=== PATIENT | female | born 1945 | race Caucasian/White ===

== ENCOUNTER → 2018-05-05 | Outpatient (REF) | payer MEDICARE, OTHER | LOC: M LAB REF 16:57 | DX: E11.22 Type 2 diabetes mellitus with diabetic chronic kidney disease (principal) | CPT/HCPCS: 84443 ==

== ENCOUNTER → 2019-01-26 | Outpatient (CLI) | payer MEDICARE ==
[~2019-01-26] MED LIST: /GLIP10TAB PO; ALDA25TA2 PO; AMLO25TA PO; ASPI325T PO; ATOR1TAB19 PO; BAYE325T13 PO; BENA10TA2 PO; CALC1CAP31 PO; CARV6.25 PO; CEPALOZ2 MT; COUM2.5T17 PO; D3 S20002 PO; DOCU10CA PO; FEBU40TA PO; FERR325T3 PO; GABA-843 PO; HUMA100I3 SC; HYDR-3677 PO; HYDR12.56 PO; INSUH10VL SC; LASI40TA PO; LEVEINJ SC; LOSA50TA88 PO; METF850T PO; MICR10CA PO; MILK120011 PO; MIRA3350 PO; OMEP20CA3 PO; PERC5TAB12 PO; SENO8.6T10 PO; SYNT75TA PO; SYNT88TA2 PO; TIZA4CAP6 PO; TORS20TA2 PO; TOUJ300I2 SC; TUMS500C PO; TYLE325T5 PO; ULTR50TA8 PO; VICT18IN SC; VITA200015 PO; fleets PR; potassium chloride PO
[2019-01-26 11:54] LABS: HEMATOCRIT 39.9 % (36.0-47.0); HEMOGLOBIN 14.1 g/dl (12.0-15.5); MEAN CORPUSCULAR HEMOGLOBIN 33.1 pg (27.0-33.0); MEAN CORPUSCULAR HGB CONC 35.3 g/dl (32.0-36.5); MEAN CORPUSCULAR VOLUME 93.7 fl (80.0-96.0); PLATELET COUNT, AUTOMATED 256 10^3/uL (150-450); RED BLOOD COUNT 4.26 10^6/uL (4.00-5.40); WHITE BLOOD COUNT 9.5 10^3/uL (4.0-10.0)
[2019-01-26 12:04] LABS: INR 0.92; PROTHROMBIN TIME 12.5 SECONDS (12.1-14.4)
[2019-01-26 12:17] LABS: ERYTHROCYTE SEDIMENTATION RATE 37 mm/hr (0-30)
[2019-01-26 12:23] LABS: ALBUMIN 3.7 GM/DL (3.2-5.2); BILIRUBIN,TOTAL 0.4 MG/DL (0.2-1.0); CALCIUM LEVEL 9.1 MG/DL (8.8-10.2); CREATININE FOR GFR 2.13 MG/DL (0.55-1.30); GLOMERULAR FILTRATION RATE 24.3 (>39); POTASSIUM SERUM 3.9 MEQ/L (3.5-5.1)
--- NOTE | 2019-01-26 12:47 | REP ---
Chest two views HISTORY: Left hip arthritis Comparison: 07/08/2015 The lungs are clear. The heart is normal in size. The pulmonary vasculature is normal in appearance. The bony structure is intact. IMPRESSION: No acute disease. Electronically Signed by Ilan Malone MD 01/26/2019 12:39 P
--- NOTE | 2019-01-26 21:58 | ECGEPIP ---
[facility] Test Date: 2019-01-26 Pat Name: MARIUSZ JOYNER Department: Room: - Gender: Female Juvenile Counselor: MAGALIS : 1945 Requested By: Orlin Aguilar Order Number: [id number] Reading MD: Cullen Mccabe Measurements Intervals [place] Rate: 65 P: 76 MT: 213 QRS: 5 QRSD: 104 T: 46 QT: 422 QTc: 440 Interpretive Statements SINUS RHYTHM WITH FIRST DEGREE AV BLOCK Increased heart rate compared with 07/08/2015 Electronically Signed on 01-26-2019 21:57:42 EDT by Cullen Mccabe
== END ==
LOC: M LAB 11:09
PROVIDERS: ATTEND Orthopaedic Surgery
DX: M16.12 Unilateral primary osteoarthritis, left hip (principal)

== ENCOUNTER → 2019-01-26 | Outpatient (CLI) | payer MEDICARE ==
[~2019-01-26] MED LIST changes: +TRAM50TA2 PO; +XARE10TA PO
== END ==
LOC: M PT 10:24
PROVIDERS: ATTEND Orthopaedic Surgery
DX: M16.12 Unilateral primary osteoarthritis, left hip (principal)

== ENCOUNTER → 2019-02-03 | Outpatient (REF) | payer MEDICARE ==
[~2019-02-03] MED LIST changes: -TRAM50TA2 PO; -XARE10TA PO
[2019-02-03 18:14] LABS: PHOSPHORUS LEVEL 2.8 MG/DL (2.5-4.9)
== END ==
LOC: M LAB REF 17:05
PROVIDERS: ATTEND Family Medicine
DX: N18.4 Chronic kidney disease, stage 4 (severe) (principal)

== ENCOUNTER 2019-02-13 09:30 | Inpatient (IN) | payer MEDICARE ==
--- NOTE | 2019-02-10 13:43 | HPE ---
DATE OF ANTICIPATED ADMISSION: 02/13/2019 ATTENDING PHYSICIAN: Dr. Orlin Aguilar. CHIEF COMPLAINT: Left hip pain and stiffness. HISTORY: The patient is a 74-year-old female with progressively worsening left hip pain and stiffness. She has failed to improve with conservative measures. She continues to have symptoms with weightbearing activities and activities of daily living. She is consented for an elective left total hip arthroplasty with Dr. Aguilar for her continued symptoms. Medical optimization pending with Dr. Sharad Berrios. CURRENT MEDICATIONS: - aspirin 325 mg daily - Lipitor 10 mg daily - calcitriol 0.25 mcg daily - losartan 50 mg daily - Toujeo 300 units/mL 70 units every evening - torsemide 20 mg daily - carvedilol 6.25 mg daily - levothyroxine 88 mcg daily - Uloric 40 mg daily - gabapentin 300 mg twice daily - tizanidine 4 mg three times daily as needed. ALLERGIES: No known drug allergies CHRONIC MEDICAL CONDITIONS: Diabetes. Hypertension. Kidney disease. Hypothyroid. PAST SURGICAL HISTORY: Right knee arthroscopy and subsequent replacement. Cholecystectomy. SOCIAL HISTORY: The patient does not use tobacco and rarely uses alcohol. FAMILY HISTORY: Noncontributory. REVIEW OF SYSTEMS: The patient denies fevers, chills, nausea, vomiting or diarrhea. She denies chest pain, shortness of breath, lightheadedness, dizziness or headaches. She denies any recent upper respiratory or urinary tract infection symptoms. She does continue to have left hip pain with weightbearing activities and activities of daily living. PHYSICAL EXAMINATION: GENERAL: Well-nourished, well-developed female in no apparent distress. She is alert, oriented and cooperative. Mood and affect are appropriate. VITAL SIGNS: Blood pressure 138/52, respirations 16, heart rate 68, height 5 feet 4-1/2 inches, weight 225.8 pounds, temperature 97.7 NECK: supple without lymphadenopathy HEART: regular rate and rhythm LUNGS: Clear to auscultation bilaterally ABDOMEN: soft, nontender with bowel sounds present MUSCULOSKELETAL: Inspection of the left hip reveals no gross abnormalities. Skin is intact. She does have tenderness to palpation along the groin medially. She has significant knee limited motion at the hip most pronounced with internal rotation. Strength however is intact. Calf is soft, nontender to palpation with no palpable cords noted. She is neurovascularly intact distally. LABORATORY DATA: Chest x-ray No acute disease. Left hip x-ray notable for end-stage degenerative changes. EKG: Sinus rhythm with first-degree AV block. Hemoglobin A1c elevated at 8, magnesium 2.1, TSH 2.03, microalbumin 3.2, urine creatinine decreased at 18.2, microalbumin to creatinine ratio 17.6. Comprehensive metabolic profile: Fasting glucose elevated 338, BUN elevated at 38, creatinine elevated at 2.13, GFR decreased at 24.3, sodium 139, potassium 3.9, chloride 101, carbon dioxide 29, anion gap 9, calcium 9.1, AST 12, ALT 17, alkaline phosphatase 80, total bilirubin 0.4, total protein 7.0, albumin 3.7, albumin-globulin ratio 1.12. Prothrombin time 12.5, INR 0.92. Complete blood count: ESR elevated at 37, WBCs 7.5, hematocrit 39.9, hemoglobin 14.1, platelets 256. IMPRESSION: Left hip degenerative arthritis with x-rays notable for end-stage degenerative changes. PLAN: The patient has consented for an elective left total hip arthroplasty. She had a recent medication change to help control her diabetes. Medical optimization pending with her primary primary care nurse practitioner Dr. Sharad Berrios. [facility]
[~2019-02-13] VITALS: Ht 167.6 cm; Wt 103.8 kg
[2019-02-13] VITALS (22 sets, daily range): BP systolic 119–157; BP diastolic 57–108
[2019-02-13] MEDS ORDERED: NS 1,000 ML IV ONE (11:15)
[2019-02-13] MEDS ORDERED: ONDANSETRON 4MG/2ML VIAL (J2405) As Ordered ONE (11:30)
[2019-02-13] MEDS ORDERED: PROPOFOL 200 MG/20 ML VIAL As Ordered ONE (11:30)
[2019-02-13] MEDS ORDERED: LIDOCAINE 2% INJ 100 MG/5 ML SDV (FOR ANES.) As Ordered ONE (11:30)
[2019-02-13] MEDS ORDERED: fentaNYL 100 MCG/2 ML INJECTION (J3010) As Ordered ONE (11:30)
[2019-02-13] MEDS ORDERED: MIDAZOLAM INJ 2 MG/2 ML VIAL (J2250) As Ordered ONE (11:31)
[2019-02-13] MEDS ORDERED: ePHEDrine SULFATE 25 MG/5 ML(5MG/ML) SYRINGE As Ordered ONE ×2 (11:34→14:54)
[2019-02-13 11:57] LABS: POTASSIUM SERUM 3.9 MEQ/L (3.5-5.1)
[2019-02-13] MEDS ORDERED: ceFAZolin 1GM INJ (J0690 PER 500MG) As Ordered ONE (12:45)
[2019-02-13] MEDS ORDERED: EPINEPHrine INJ 1 MG/ML 1ML AMP As Ordered ONE (12:45)
[2019-02-13] MEDS ORDERED: TRANEXAMIC ACID 100 MG/ML 10ML VIAL As Ordered ONE (12:45)
[2019-02-13] MEDS ORDERED: BUPIVACAINE LIPOSOME/PF 1.3% 20ML VIAL (13.3MG/ML)(EXPAREL)(C9290 PER1MG) As Ordered ONE (12:46)
--- NOTE | 2019-02-13 15:01 | IPN ---
DATE: 02/13/2019 Patient seen and examined. She wished to go ahead with a left hip arthroplasty. She understands the nature of this, the risks of bleeding, infection, damage to nerves, vessels, persistent pain, wear, loosening, dislocation, leg length inequality, blood clots, medical problems, . She understands she is at high risk due to her medical situation. Her skin over the hip appears clear.
[2019-02-13] MEDS ORDERED: ACETAMINOPHEN TAB 650MG DOSE (2X325MG) PO PRN (16:30)
[2019-02-13] MEDS ORDERED: MORPHINE 4 MG/ML 1ML VIAL/SYRINGE (J2270) IV PRN ×2 (16:30→16:45)
[2019-02-13] MEDS ORDERED: fentaNYL 100 MCG/2 ML INJECTION (J3010) IV PRN (16:30)
[2019-02-13] MEDS ORDERED: LR 1,000 ML IV SCH ×2 (16:30)
[2019-02-13] MEDS ORDERED: ONDANSETRON 4MG/2ML VIAL (J2405) IV PRN (16:30)
[2019-02-13] MEDS ORDERED: HYDROMORPHONE HCL 0.5 MG/ 0.5 ML SYRINGE (J1170 PER 1) IV PRN (16:30)
[2019-02-13] MEDS ORDERED: FLEET ENEMA PR PRN (16:30)
[2019-02-13] MEDS ORDERED: DEXTROSE 50% 50 ML SYRINGE IV PRN (16:45)
[2019-02-13] MEDS: PERCOCET 5MG/325MG TAB PO PRN ×2 (16:45→17:15)
[2019-02-13] MEDS ORDERED: GLUCAGON FOR INJ 1 MG VIAL (J1610) SC PRN (16:45)
[2019-02-13] MEDS ORDERED: GLUCOSE 4 GM CHEW TABLET PO PRN (16:45)
--- NOTE | 2019-02-13 16:50 | CR.PDOC ---
General Date of Consultation: Feb 13, 2019 Consultation DATE OF CONSULT: 02 13 19 CONSULT FOR: Orthopedic surgery REASON FOR CONSULT: Medical management HISTORY OF PRESENT ILLNESS: Patient with a long history of left hip osteoarthritis who failed conservative measures on the outpatient setting so Dr. Riddle's office and elected for elective left hip arthroplasty today. She is tolerated procedure well she is examined postoperatively 0 PACU. At this time denies any specific complaints are pain is well-controlled.. Otherwise patient denies weight loss, hair loss, headache, visual changes, chest pain, shortness of breath, cough, nausea, vomiting, diarrhea, abdominal pain, muscle aches, worsening arthritis, change in mood preop risk stratification completed by Dr. Sharad Berrios PAST MEDICAL HISTORY: 1. Hypothyroidism. 2. Dyslipidemia. 3. Insulin-dependent diabetes mellitus 4. Anxiety 5. Chronic low back pain 6. Hyperparathyroidism 7. Chronic kidney disease 8. Possible arthritis 9. Hypertension. HOME MEDICATIONS: Please see below. ALLERGIES: Please see below PAST SURGICAL HISTORY: 1. Knee surgery. 2. Cholecystectomy. 3. tubal ligation. SOCIAL HISTORY: Lives with: At home with her family, Employment: Not currently working, Tobacco use: Denies. ETOH: Denies, Illicit drug use: Denies, Tattoos done unprofessionally: Denies. CODE STATUS: Full code FAMILY HISTORY:Reviewed and noncontributory REVIEW OF SYSTEMS: 10 systems reviewed and negative other than HPI PHYSICAL EXAMINATION: VITAL SIGNS: Temperature 97.2, pulse 70, respiratory rate 20, blood pressure 160/90, pulse oximetry 97 % on room air. GENERAL: Pleasant obese elderly female lying flat in bed awake alert oriented speaking in complete sentences no acute distress HEENT: Moist mucous membranes no elevation and CVP CARDIOVASCULAR: S1 S2 regular no additional heart sounds appreciated. RESPIRATORY: Clear to auscultation bilaterally. ABDOMINAL: Bowel sounds present abdomen soft and nontender, obese EXTREMITIES: No clubbing cyanosis or edema NEUROLOGICAL: Spontaneously moves all 4 extremities cranial 2 through 12 grossly intact no gross focal deficits appreciated, dressing is clean dry and intact PSYCHOLOGICAL: Appropriate LABORATORY DATA: See below. MICROBIOLOGY: Please see below. IMAGING: None ASSESSMENT & PLAN: This is a 74-year-old female postop day 0 for left hip arthroplasty. PROBLEMS: 1. Postoperative day 0 left hip arthroplasty: DVT prophylaxis physical therapy Desai catheter pain control all as per orthopedic surgery. 2. Dyslipidemia: Continue with Lipitor 3. Chronic kidney disease: Patient is receiving lactated Ringer's, we'll hold her ARB as well as her torsemide for a short time. Consider resuming within the next 24-48 hours 4. Hypertension: Continue with carvedilol with holding parameters 5. Chronic low back pain: Continue with gabapentin we will hold her tizanidine that she is receiving IV narcotics and significant anesthesia at this time 6. Insulin-dependent diabetes: Sliding scale insulin regimen consistent carb diet with 2 g sodium. 7. Gout: Hold caloric consider restarting the near future 8. Antiplatelet: I will hold her aspirin 325 daily defer to when it is okay to resume to orthopedic surgery 9. Hypothyroidism: Continue with Synthroid 10. Vitamin D deficiency continue supplementation DVT PROPHYLAXIS: As per the surgery Thank you for this interesting consult, we will continue to follow along with you. Please Vocera secure text or call with any specific questions. Vital Signs/I&O Vital Signs Date Time Temp Pulse Resp B/P (MAP) Pulse Ox O2 Delivery O2 Flow Rate FiO2 02/13/19 12:15 97.2 70 20 160/90 (113) 97 Laboratory Data Labs 24H Laboratory Tests 2 02/13/19 16:25: Bedside Glucose (Misc Panel) 112H CBC/BMP Laboratory Tests 02/13/19 11:19 Allergies Coded Allergies: No Known Allergies (Verified , 08/25/12) Home Medications Scheduled Aspirin (Aspirin) 325 Mg Tablet, 325 MG PO DAILY, (Reported) Atorvastatin Calcium (Atorvastatin Calcium) 10 Mg Tablet, 10 MG PO DAILY, (Reported) Calcitriol (Calcitriol) 0.25 Mcg Cap, 0.25 MCG PO DAILY, (Reported) Carvedilol (Carvedilol) 6.25 Mg Tab, 6.25 MG PO DAILY, (Reported) Cholecalciferol (Vitamin D3) (Vitamin D3) 2,000 Unit Capsule, 2,000 UNIT PO DAILY, (Reported) Febuxostat (Uloric) 40 Mg Tablet, 40 MG PO DAILY, (Reported) Gabapentin (Gabapentin) 300 Mg Cap, 600 MG PO QHS, (Reported) Insulin Glargine,Hum.rec.anlog (Toujeo Max Solostar) 300 Unit/1 Ml Insuln.pen, 56 UNIT SC QHS, (Reported) Insulin Lispro (Humalog) 100 Unit/Ml Inj, 14 UNITS SC QAM, (Reported) Insulin Lispro (Humalog) 100 Unit/1 Ml Cartridge, 30 UNITS SC ACS, (Reported) Levothyroxine Sodium (Synthroid) 88 Mcg Tablet, 88 MCG PO DAILY, (Reported) Losartan Potassium (Losartan Potassium) 50 Mg Tab, 50 MG PO BID, (Reported) Tizanidine HCl (Tizanidine HCl) 4 Mg Capsule, 4 MG PO QHSP, (Reported) Torsemide (Torsemide) 20 Mg Tab, 40 MG PO BID, (Reported) RENETTA EDWARD MD Feb 13, 2019 16:50
[2019-02-13] MEDS ORDERED: HumaLOG INSULIN (NovoLOG) PER UNIT SC SCH (17:30)
[2019-02-13] MEDS: HumaLOG INSULIN (NovoLOG) PER UNIT SC SCH (17:30)
--- NOTE | 2019-02-13 17:40 | REP ---
Left hip two views: There is a total hip arthroplasty with the components tightly applied and in satisfactory positions and alignment. Skin ilene are incidentally identified. Electronically Signed by Javier Hopper MD 02/13/2019 05:31 P
[2019-02-13] MEDS: ONDANSETRON 4MG/2ML VIAL (J2405) IV PRN (20:27)
[2019-02-13] MEDS: GABAPENTIN 300 MG CAP PO SCH (21:01)
[2019-02-13] MEDS: traMADol 50 MG TAB PO PRN (21:08)
--- NOTE | 2019-02-13 22:20 | RO ---
DATE OF PROCEDURE: 02/13/2019 PREOPERATIVE DIAGNOSIS: Left hip osteoarthritis. POSTOPERATIVE DIAGNOSIS: Left hip osteoarthritis PROCEDURE: Left total hip arthroplasty using a [place] size 7 high offset 1.5, 36 ball with a 54 cup. SURGEON: Orlin Aguilar MD MANAGEMENT SERVICES TECHNICIAN: Jaden Mathis PA-C ANESTHESIA: Spinal. ESTIMATED BLOOD LOSS: 300 mL. COMPLICATIONS: None. INDICATIONS: This is a 73-year-old woman who has had gradually worsening arthritis and pain in her left hip that has been refractory to conservative management. She wished to go ahead with surgical treatment. She understood the nature of this, the risks associated including bleeding, infection, damage to nerves, vessels, persistent pain, wear, loosening, dislocation, blood clots, medical problems, among others. DESCRIPTION OF PROCEDURE: The patient was taken to the operating room, placed in supine position after spinal anesthesia was induced. She was then turned into the right lateral decubitus position on the [place] positioner. All areas were padded appropriately. The left hip was prepped and draped in the usual sterile fashion. Time-out had been performed. I then sharply dissected down through the subcutaneous tissue, which was fairly copious until the abductors were identified. She had relatively poor tissues with actually some evidence of the abductor pull off. I was able to release the anterior 40% of the abductor and exposed the femoral neck, and with some difficulty, we were able to dislocate the hip and then used the canal initiating reamer followed by the canal finding reamer, lateralizing reamer and then sequentially broached up to a size 7, which had good bony purchase and good fit. The neck cut was then made about three-quarters of a fingerbreadth up from the lesser trochanter. I then directed attention to the acetabulum and anterior and posterior retractors were placed. I then cleaned out the labrum and soft tissue and sequentially reamed up to a size 53, which had good concentric reaming and good bleeding bone. Any remaining soft tissue was removed. I then impacted a 54 cup in the appropriate amount of anteversion and horizontal tilt until it was in an excellent, well-seated position. We then placed the acetabular liner and impacted this in place, but I was unable to get one or two of the tabs level with the cup and felt there might be some soft tissue impingement, so this actually was removed with the cup remover. And I again cleaned up soft tissue from around the edges, I removed some osteophytes anteriorly and then reseated a new acetabular liner, well seated. This was flush. Then directed our attention to the femoral side and sequentially had broached up to a size 7, which had good fit and fill. I was a little gentle with the mallet because her bone was somewhat thin. I then trialed off this, and a 1.5 high offset had excellent soft tissue tension, excellent stability, and excellent range of motion. There was minimal shuck in full extension. We then removed the trial components, irrigated as I had multiple times to this point. I then inserted the actual size 7 high offset, impacted it in place, put the 1.5, 36 ball, impacted this in place over a dry taper and then we reduced the hip with the bilingual teacher assistant's help, put the hip through a range of motion, very stable. Excellent soft tissue tension. I irrigated again copiously, placed the TXA solution. We put Exparel in the deep tissues as well and then repaired the minimus with #1 Vicryl suture, irrigated, repaired the abductor with #1 Vicryl suture with several stitches being placed through the bone to try to repair the abductor, which was somewhat pulled off and her muscle and soft tissues were somewhat atrophied. I then repaired the fascia chris with #1 Vicryl suture and running Stratafix suture in both directions. I irrigated, closed the subcu with #2-0 Vicryl and the skin with ilene. Sterile dressing was applied. She was taken to recovery in stable condition. There were no known complications. The bilingual teacher assistant was instrumental in holding retractors and assisting in dislocating and reducing the hip and assisting in wound closure.
[2019-02-14 01:46] VITALS: BP 139/69
[2019-02-14] MEDS: traMADol 50 MG TAB PO PRN ×4 (01:53→22:15)
[2019-02-14] MEDS: ONDANSETRON 4MG/2ML VIAL (J2405) IV PRN ×2 (04:07→11:04)
[2019-02-14] MEDS: LEVOTHYROXINE 88MCG TABLET (0.088 MG) PO SCH (05:09)
[2019-02-14 05:53] VITALS: BP 157/83
[2019-02-14 05:57] LABS: HEMATOCRIT 35.9 % (36.0-47.0); HEMOGLOBIN 12.2 g/dl (12.0-15.5); MEAN CORPUSCULAR HEMOGLOBIN 32.4 pg (27.0-33.0); MEAN CORPUSCULAR VOLUME 95.2 fl (80.0-96.0); PLATELET COUNT, AUTOMATED 222 10^3/uL (150-450); RED BLOOD COUNT 3.77 10^6/uL (4.00-5.40); WHITE BLOOD COUNT 12.3 10^3/uL (4.0-10.0)
[2019-02-14] MEDS ORDERED: TRAM50TA2 PO (07:35)
[2019-02-14] MEDS ORDERED: XARE10TA PO (07:35)
[2019-02-14] MEDS: MIRALAX *UNIT DOSE* 17GM PACKET PO SCH (08:37)
[2019-02-14] MEDS: ATORVASTATIN 10 MG TAB PO SCH (08:37)
[2019-02-14] MEDS: VITAMIN D 1,000 INTERNATIONAL UNITS TABLET PO SCH (08:37)
[2019-02-14] MEDS: MOM 30ML SUSPENSION UDC PO SCH (08:37)
[2019-02-14] MEDS: CARVedilol 6.25 MG TAB PO SCH (08:38)
[2019-02-14] MEDS: HumaLOG INSULIN (NovoLOG) PER UNIT SC SCH ×3 (08:41→17:44)
[2019-02-14 09:58] VITALS: BP 131/60
[2019-02-14 14:23] VITALS: BP 134/63
[2019-02-14] MEDS ORDERED: RIVAROXABAN 10 MG TAB (XARELTO) PO SCH (18:00)
[2019-02-14 22:00] VITALS: BP 132/62
[2019-02-14] MEDS: GABAPENTIN 300 MG CAP PO SCH (22:13)
[2019-02-15 06:00] VITALS: BP 134/65
[2019-02-15] MEDS: LEVOTHYROXINE 88MCG TABLET (0.088 MG) PO SCH (06:29)
[2019-02-15 07:07] LABS: HEMATOCRIT 32.3 % (36.0-47.0); HEMOGLOBIN 11.2 g/dl (12.0-15.5); MEAN CORPUSCULAR HEMOGLOBIN 33.2 pg (27.0-33.0); MEAN CORPUSCULAR HGB CONC 34.7 g/dl (32.0-36.5); MEAN CORPUSCULAR VOLUME 95.8 fl (80.0-96.0); PLATELET COUNT, AUTOMATED 189 10^3/uL (150-450); RED BLOOD COUNT 3.37 10^6/uL (4.00-5.40); WHITE BLOOD COUNT 11.6 10^3/uL (4.0-10.0)
[2019-02-15] MEDS ORDERED: XARE10TA PO (07:54)
[2019-02-15] MEDS: MIRALAX *UNIT DOSE* 17GM PACKET PO SCH (09:00)
[2019-02-15] MEDS: MOM 30ML SUSPENSION UDC PO SCH (10:52)
[2019-02-15] MEDS: VITAMIN D 1,000 INTERNATIONAL UNITS TABLET PO SCH (10:53)
[2019-02-15] MEDS: HumaLOG INSULIN (NovoLOG) PER UNIT SC SCH (10:53)
[2019-02-15] MEDS: ATORVASTATIN 10 MG TAB PO SCH (10:54)
[2019-02-15 10:55] VITALS: BP 134/67
[2019-02-15] MEDS: CARVedilol 6.25 MG TAB PO SCH (10:55)
== END 2019-02-15 12:30 | disposition home or self-care (01) | DRG 470 ==
LOC: M OR 11:02 → M MS5PR 19:05
PROVIDERS: ADMIT Orthopaedic Surgery; ATTEND Orthopaedic Surgery
PROC: 0SRB02A Replacement of Left Hip Joint with Metal on Polyethylene Synthetic Substitute, Uncemented, Open Approach (ICD-10-PCS; principal; 2019-02-13 14:15)
DX: M16.12 Unilateral primary osteoarthritis, left hip (principal); N25.81 Secondary hyperparathyroidism of renal origin; Z79.82 Long term (current) use of aspirin; Z79.899 Other long term (current) drug therapy; E11.9 Type 2 diabetes mellitus without complications; I12.9 Hypertensive chronic kidney disease with stage 1 through stage 4 chronic kidney disease, or unspecified chronic kidney disease; E03.9 Hypothyroidism, unspecified; Z96.651 Presence of right artificial knee joint; E78.5 Hyperlipidemia, unspecified; F41.9 Anxiety disorder, unspecified; M54.5 Low back pain; N18.9 Chronic kidney disease, unspecified; E55.9 Vitamin D deficiency, unspecified; M10.9 Gout, unspecified

== ENCOUNTER → 2019-06-13 | Outpatient (REF) | payer MEDICARE ==
[~2019-06-13] MED LIST changes: -FEBU40TA PO; +FEBU40TA4 PO; +TRAM50TA2 PO; +XARE10TA PO
[2019-06-14 10:07] LABS: RUBELLA IgG QUALITATIVE IMMUNE (IMMUNE)
[2019-06-15 08:07] LABS: MUMPS VIRUS IgG ANTIBODY >300.0 AU/mL (Immune >10.9); RUBEOLA IgG ANTIBODY >300.0 AU/mL (Immune >16.4)
== END ==
LOC: M LAB REF 16:47
PROVIDERS: ATTEND Family Medicine
DX: Z02.1 Encounter for pre-employment examination (principal)

== ENCOUNTER → 2020-06-19 | Outpatient (REF) | payer MEDICARE | LOC: M LAB REF 16:46 | PROVIDERS: ATTEND Family Medicine | DX: E83.52 Hypercalcemia (principal) ==

== ENCOUNTER → 2020-06-21 | Outpatient (REF) | payer MEDICARE | LOC: M LAB REF 16:48 | PROVIDERS: ATTEND Family Medicine | DX: E83.52 Hypercalcemia (principal) ==

== ENCOUNTER → 2020-07-08 | Outpatient (REF) | payer MEDICARE | LOC: M LAB REF 16:04 | PROVIDERS: ATTEND Family Medicine | DX: N18.4 Chronic kidney disease, stage 4 (severe) (principal) ==

== ENCOUNTER → 2021-07-03 | Outpatient (REF) | payer MEDICARE ==
[~2021-07-03] MED LIST changes: +GABA-282 PO; -GABA-843 PO
== END ==
LOC: M LAB REF 17:28
PROVIDERS: ATTEND Internal Medicine Nephrology
DX: M1A.30X0 Chronic gout due to renal impairment, unspecified site, without tophus (tophi) (principal); E55.9 Vitamin D deficiency, unspecified

== ENCOUNTER 2023-01-17 19:35 | Inpatient (IN) | payer MEDICARE ==
[~2023-01-17] VITALS: Ht 167.6 cm; Wt 92.7 kg
[~2023-01-17 19:35] MED LIST changes: +LOSA50TA28 PO; -LOSA50TA88 PO
[2023-01-17] MEDS ORDERED: ASPI325T59 PO (20:38)
[2023-01-17] MEDS ORDERED: AMIL5TAB4 PO (20:38)
[2023-01-17] MEDS ORDERED: VALS1TAB67 PO (20:38)
[2023-01-17] MEDS ORDERED: PROT1TAB2 PO (20:38)
[2023-01-17] MEDS ORDERED: CARV6.25 PO (20:38)
[2023-01-17] MEDS ORDERED: HUMA100I3 SC (20:38)
[2023-01-17] MEDS ORDERED: SEMA0.257 SQ (20:38)
[2023-01-17] MEDS ORDERED: TOUJ300I2 SC (20:38)
[2023-01-17] MEDS ORDERED: NS 1,000 ML IV ONE (20:45)
[2023-01-17] MEDS ORDERED: LEVEMIR (INSULIN DETEMIR) 1 UNITS/0.01ML SC SCH (21:00)
[2023-01-17 21:31] LABS: BASO % 0.2 % (0.0-1.0); EOS # 0.1 10^3/uL (0.0-0.5); EOS % 0.5 % (0.0-3.0); HEMATOCRIT 35.6 % (36.0-47.0); HEMOGLOBIN 11.8 g/dl (12.0-15.5); LYMPH # 1.4 10^3/uL (1.5-5.0); MEAN CORPUSCULAR HGB CONC 33.1 g/dl (32.0-36.5); MEAN CORPUSCULAR VOLUME 99.4 fl (80.0-96.0); MONO # 0.6 10^3/uL (0.0-0.8); MONO % 4.4 % (2.0-8.0); NEUTROPHILS # 10.8 10^3/uL (1.5-8.5); NEUTROPHILS % 83.3 % (36.0-66.0); PLATELET COUNT, AUTOMATED 233 10^3/uL (150-450); RED BLOOD COUNT 3.58 10^6/uL (4.00-5.40)
[2023-01-17 21:52] LABS: CK-MB VALUE MASS 2.5 NG/ML (<3.6); LIPASE 71 U/L (12-53)
[2023-01-17 21:54] LABS: CPK CREATINE PHOSPHOKINASE 36 U/L (34-145); MB/CK RELATIVE INDEX 6.94 (< OR =4)
[2023-01-17 22:00] LABS: ALBUMIN 3.6 G/DL (3.2-5.2); ALKALINE PHOSPHATASE 51 U/L (46-116); ALT/SGPT < 9 U/L (7.0-40); AST/SGOT < 8 U/L (<34); BILIRUBIN,DIRECT < 0.1 MG/DL (<0.4); BILIRUBIN,TOTAL 0.2 MG/DL (0.3-1.2); CALCIUM LEVEL 8.9 MG/DL (8.3-10.6); CARBON DIOXIDE LEVEL 12 MMOL/L (20-31); CHLORIDE LEVEL 104 MMOL/L (98-107); CREATININE FOR GFR 11.12 MG/DL (0.55-1.30); GLOMERULAR FILTRATION RATE 3.6 (>39); GLUCOSE, FASTING 133 MG/DL (74-106); POTASSIUM SERUM 6.3 MMOL/L (3.5-5.1); SODIUM LEVEL 138 MMOL/L (136-145); TOTAL PROTEIN 6.9 G/DL (5.7-8.2)
[2023-01-17] MEDS ORDERED: NS 2,520 ML in IV 1 EA IV ONE (22:10)
[2023-01-17] MEDS: GASTROGRAFIN SOLUTION 30ML PO SCH ×2 (22:16→22:43)
[2023-01-17] MEDS ORDERED: HumuLIN R (REGULAR) INSULIN (NovoLIN R) **100U/ML** PER UNIT IV ONE (23:00)
[2023-01-17] MEDS ORDERED: PATIROMER SORBITEX CALCIUM 8.4 GM POWDER PACKET (VELTASSA) PO ONE (23:00)
[2023-01-17] MEDS ORDERED: GI COCKTAIL 50ML BTL(HYOSCYAMINE/MAALOX/LIDOCAINE VISCOUS)(1:3:1) PO ONE (23:00)
[2023-01-17] MEDS ORDERED: DEXTROSE 50% 50ML SYRINGE IV ONE (23:00)
[2023-01-17] MEDS ORDERED: CALCIUM CHLORIDE 10% 1 GM/10 ML SYR IV ONE (23:00)
[2023-01-18 02:09] LABS: CK-MB VALUE MASS 2.9 NG/ML (<3.6)
[2023-01-18 02:13] LABS: MB/CK RELATIVE INDEX 7.63 (< OR =4)
[2023-01-18] MEDS ORDERED: ACETAMINOPHEN TAB 650MG DOSE (2X325MG) PO PRN (03:10)
[2023-01-18] MEDS ORDERED: ONDANSETRON 4MG 2ML VIAL IV PRN (03:10)
[2023-01-18] MEDS ORDERED: DEXTROSE 50% 50ML SYRINGE IV PRN (03:10)
[2023-01-18] MEDS ORDERED: GLUCOSE 4GM CHEW TABLET PO PRN (03:10)
[2023-01-18] MEDS ORDERED: GLUCAGON INJ 1MG VIAL SC PRN (03:10)
[2023-01-18] MEDS ORDERED: NS 1,000 ML IV SCH (03:10)
[2023-01-18] MEDS ORDERED: ALLO300T2 PO (03:31)
[2023-01-18] MEDS ORDERED: VITA200020 PO (03:31)
[2023-01-18] MEDS ORDERED: HOME MED LIST COMPLETE! XX SCH (03:35)
[2023-01-18] MEDS ORDERED: PANTOPRAZOLE 40MG VIAL IV ONE (04:00)
[2023-01-18 05:37] LABS: HEMATOCRIT 30.7 % (36.0-47.0); HEMOGLOBIN 10.3 g/dl (12.0-15.5); MEAN CORPUSCULAR HEMOGLOBIN 33.1 pg (27.0-33.0); MEAN CORPUSCULAR HGB CONC 33.6 g/dl (32.0-36.5); MEAN CORPUSCULAR VOLUME 98.7 fl (80.0-96.0); PLATELET COUNT, AUTOMATED 198 10^3/uL (150-450); RED BLOOD COUNT 3.11 10^6/uL (4.00-5.40); WHITE BLOOD COUNT 11.8 10^3/uL (4.0-10.0)
[2023-01-18] MEDS: LEVOTHYROXINE 88MCG TABLET (0.088 MG) PO SCH (06:12)
[2023-01-18 06:25] LABS: ALKALINE PHOSPHATASE 43 U/L (46-116); ALT/SGPT < 9 U/L (7.0-40); AST/SGOT < 8 U/L (<34); BILIRUBIN,TOTAL < 0.2 MG/DL (0.3-1.2); BLOOD UREA NITROGEN 151 MG/DL (9-23); CALCIUM LEVEL 8.5 MG/DL (8.3-10.6); CARBON DIOXIDE LEVEL 12 MMOL/L (20-31); CHLORIDE LEVEL 108 MMOL/L (98-107); CREATININE FOR GFR 10.15 MG/DL (0.55-1.30); GLUCOSE, FASTING 88 MG/DL (74-106); MAGNESIUM LEVEL 1.6 MG/DL (1.8-2.4); POTASSIUM SERUM 5.1 MMOL/L (3.5-5.1); SODIUM LEVEL 141 MMOL/L (136-145); TOTAL PROTEIN 5.7 G/DL (5.7-8.2)
[2023-01-18 06:28] LABS: BLOOD UREA NITROGEN 163 MG/DL (9-23)
[2023-01-18] MEDS: INSULIN LISPRO (NovoLOG) PER UNIT SC SCH ×4 (07:21→20:55)
[2023-01-18] MEDS: MAG SULF 1GM/100ML (MAG RUN) 1 GM in IV 1 EA IV SCH ×2 (07:46→09:11)
[2023-01-18] MEDS: CARVedilol 6.25 MG TAB PO SCH ×2 (09:10→20:25)
[2023-01-18] MEDS: ASPIRIN 81MG CHEW TABLET PO SCH (09:11)
[2023-01-18 09:42] VITALS: BP 129/58
[2023-01-18 10:22] LABS: VENOUS BASE EXCESS -15.5 (-2.0-2.0); VENOUS HCO3 11.7 MMOL/L (23.0-27.0); VENOUS O2 SATURATION 98.3 % (60.0-80.0); VENOUS PARTIAL PRESSURE CO2 32.5 mmHg (38.0-50.0); VENOUS PH 7.176 UNITS (7.330-7.430); VENOUS STANDARD HCO3 12.6 MMOL/L; VENOUS TOTAL CO2 12.7 MMOL/L (24.0-28.0)
[2023-01-18] MEDS: SODIUM BICARBONATE 150 MEQ in D5W 1,000 ML IV SCH ×2 (10:23→19:57)
[2023-01-18] MEDS: CALCITRIOL 0.25 MCG CAP (S0169) PO SCH (10:59)
[2023-01-18] MEDS: VITAMIN D 1,000 INTERNATIONAL UNITS TABLET PO SCH (10:59)
[2023-01-18] MEDS: ATORVASTATIN 10 MG TAB PO SCH (10:59)
[2023-01-18 12:00] VITALS: BP 111/56
[2023-01-18] MEDS: LACTOBACILLUS ACIDOPHILUS CAP (BACID) PO SCH ×3 (12:21→21:10)
[2023-01-18] MEDS: CIPROFLOXACIN 200 MG in IV 1 EA IV SCH ×2 (13:29→23:44)
[2023-01-18 13:47] LABS: CALCIUM LEVEL 8.3 MG/DL (8.3-10.6); CREATININE FOR GFR 10.08 MG/DL (0.55-1.30); PHOSPHORUS LEVEL 8.9 MG/DL (2.4-5.1); POTASSIUM SERUM 5.3 MMOL/L (3.5-5.1)
[2023-01-18] MEDS: metroNIDAZOLE 500 MG in IV 1 EA IV SCH ×2 (14:38→21:09)
[2023-01-18] MEDS: HEPARIN SOD (PORCINE) 5000UNITS/ML 1ML VIAL/SYRINGE SC SCH ×2 (14:39→21:09)
[2023-01-18] MEDS ORDERED: PATIROMER SORBITEX CALCIUM 8.4 GM POWDER PACKET (VELTASSA) PO SCH (15:00)
[2023-01-18 16:00] VITALS: BP 90/54
[2023-01-18 17:40] VITALS: BP 100/56
[2023-01-18 20:06] VITALS: BP 98/52
[2023-01-18] MEDS: LEVEMIR (INSULIN DETEMIR) 1 UNITS/0.01ML SC SCH (21:10)
[2023-01-18 23:49] VITALS: BP 126/58
[2023-01-19 03:33] VITALS: BP 124/62
[2023-01-19] MEDS: SODIUM BICARBONATE 150 MEQ in D5W 1,000 ML IV SCH ×3 (04:45→22:59)
[2023-01-19] MEDS: metroNIDAZOLE 500 MG in IV 1 EA IV SCH (05:16)
[2023-01-19] MEDS: HEPARIN SOD (PORCINE) 5000UNITS/ML 1ML VIAL/SYRINGE SC SCH ×3 (05:53→21:40)
[2023-01-19] MEDS: LEVOTHYROXINE 88MCG TABLET (0.088 MG) PO SCH (05:53)
[2023-01-19] MEDS ORDERED: PANTOPRAZOLE 40MG VIAL IV SCH (06:00)
[2023-01-19 06:54] LABS: VENOUS BASE EXCESS -8.5 (-2.0-2.0); VENOUS HCO3 17.6 MMOL/L (23.0-27.0); VENOUS O2 SATURATION 86.7 % (60.0-80.0); VENOUS PARTIAL PRESSURE CO2 38.6 mmHg (38.0-50.0); VENOUS PARTIAL PRESSURE O2 53.3 mmHg (30.0-50.0); VENOUS PH 7.278 UNITS (7.330-7.430); VENOUS STANDARD HCO3 17.4 MMOL/L; VENOUS TOTAL CO2 18.8 MMOL/L (24.0-28.0)
[2023-01-19 06:55] LABS: BASO % 0.4 % (0.0-1.0); EOS # 0.3 10^3/uL (0.0-0.5); EOS % 4.2 % (0.0-3.0); HEMATOCRIT 28.9 % (36.0-47.0); HEMOGLOBIN 9.8 g/dl (12.0-15.5); LYMPH # 1.3 10^3/uL (1.5-5.0); LYMPH % 16.5 % (24.0-44.0); MEAN CORPUSCULAR HEMOGLOBIN 32.8 pg (27.0-33.0); MEAN CORPUSCULAR HGB CONC 33.9 g/dl (32.0-36.5); MEAN CORPUSCULAR VOLUME 96.7 fl (80.0-96.0); MONO # 0.5 10^3/uL (0.0-0.8); NEUTROPHILS # 5.5 10^3/uL (1.5-8.5); NEUTROPHILS % 71.4 % (36.0-66.0); PLATELET COUNT, AUTOMATED 192 10^3/uL (150-450); RED BLOOD COUNT 2.99 10^6/uL (4.00-5.40); WHITE BLOOD COUNT 7.7 10^3/uL (4.0-10.0)
[2023-01-19 06:57] LABS: APPEARANCE, URINE CLOUDY (CLEAR); BACTERIA, URINE AUTO 1+ (NEGATIVE); BILIRUBIN, URINE AUTO NEGATIVE (NEGATIVE); BLOOD, URINE BLOOD 1+ (NEGATIVE); COLOR, URINE YELLOW (YELLOW); GLUCOSE, URINE (UA) AUTO NEGATIVE (NEGATIVE); KETONE, URINE AUTO NEGATIVE (NEGATIVE); LEUKOCYTE ESTERASE, URINE AUTO 3+ (NEGATIVE); MUCUS, URINE SMALL (NEGATIVE); NITRITE, URINE AUTO NEGATIVE (NEGATIVE); PROTEIN, URINE AUTO NEGATIVE (NEGATIVE); RBC, URINE AUTO 19 /HPF (0-3); SPECIFIC GRAVITY URINE AUTO 1.014 (1.002-1.035); SQUAMOUS EPITHELIAL CELL UR AU 2 /HPF (0-6); UROBILINOGEN, URINE AUTO 0.2 mg/dL (0.0-2.0); WBC, URINE AUTO 85 /HPF (0-3)
[2023-01-19 07:10] LABS: SODIUM,RANDOM URINE 33 MMOL/L
[2023-01-19 07:17] LABS: OSMOLALITY URINE 340 MOSM/KG (50-1400)
[2023-01-19 07:20] LABS: CREATININE,RANDOM URINE 154.8 MG/DL
[2023-01-19 07:30] LABS: ALBUMIN 2.9 G/DL (3.2-5.2); CREATININE FOR GFR 9.11 MG/DL (0.55-1.30); GLOMERULAR FILTRATION RATE 4.5 (>39); PHOSPHORUS LEVEL 8.2 MG/DL (2.4-5.1); POTASSIUM SERUM 4.3 MMOL/L (3.5-5.1)
[2023-01-19] MEDS: INSULIN LISPRO (NovoLOG) PER UNIT SC SCH ×4 (07:30→21:00)
[2023-01-19 08:17] VITALS: BP 127/60
[2023-01-19] MEDS: VITAMIN D 1,000 INTERNATIONAL UNITS TABLET PO SCH (08:22)
[2023-01-19] MEDS: ATORVASTATIN 10 MG TAB PO SCH (08:22)
[2023-01-19] MEDS: ASPIRIN 81MG CHEW TABLET PO SCH (08:22)
[2023-01-19] MEDS: CARVedilol 6.25 MG TAB PO SCH ×2 (08:22→21:39)
[2023-01-19] MEDS: LACTOBACILLUS ACIDOPHILUS CAP (BACID) PO SCH ×4 (08:22→21:39)
[2023-01-19 11:55] VITALS: BP 102/63
[2023-01-19] MEDS: CIPROFLOXACIN 200 MG in IV 1 EA IV SCH (12:12)
[2023-01-19] MEDS: metroNIDAZOLE (FLAGYL) 500MG TABLET PO SCH ×2 (14:46→21:39)
[2023-01-19] MEDS: CIPROFLOXACIN 500MG TABLET PO SCH (18:34)
[2023-01-19 20:02] VITALS: BP 138/63
[2023-01-19] MEDS: LEVEMIR (INSULIN DETEMIR) 1 UNITS/0.01ML SC SCH (21:39)
[2023-01-20 03:31] VITALS: BP 146/69
[2023-01-20] MEDS: LEVOTHYROXINE 88MCG TABLET (0.088 MG) PO SCH (05:31)
[2023-01-20] MEDS: metroNIDAZOLE (FLAGYL) 500MG TABLET PO SCH ×3 (05:31→20:47)
[2023-01-20] MEDS: HEPARIN SOD (PORCINE) 5000UNITS/ML 1ML VIAL/SYRINGE SC SCH ×3 (05:31→20:48)
[2023-01-20 05:49] LABS: VENOUS BASE EXCESS 1.8 (-2.0-2.0); VENOUS HCO3 25.6 MMOL/L (23.0-27.0); VENOUS O2 SATURATION 98.9 % (60.0-80.0); VENOUS PARTIAL PRESSURE CO2 37.1 mmHg (38.0-50.0); VENOUS PARTIAL PRESSURE O2 161.5 mmHg (30.0-50.0); VENOUS PH 7.457 UNITS (7.330-7.430); VENOUS STANDARD HCO3 26.1 MMOL/L; VENOUS TOTAL CO2 26.8 MMOL/L (24.0-28.0)
[2023-01-20 05:57] LABS: BASO % 0.3 % (0.0-1.0); EOS # 0.3 10^3/uL (0.0-0.5); EOS % 4.5 % (0.0-3.0); HEMATOCRIT 26.2 % (36.0-47.0); HEMOGLOBIN 9.2 g/dl (12.0-15.5); LYMPH # 1.2 10^3/uL (1.5-5.0); LYMPH % 16.8 % (24.0-44.0); MEAN CORPUSCULAR HEMOGLOBIN 33.1 pg (27.0-33.0); MEAN CORPUSCULAR HGB CONC 35.1 g/dl (32.0-36.5); MEAN CORPUSCULAR VOLUME 94.2 fl (80.0-96.0); MONO # 0.7 10^3/uL (0.0-0.8); MONO % 10.5 % (2.0-8.0); NEUTROPHILS # 4.8 10^3/uL (1.5-8.5); NEUTROPHILS % 67.2 % (36.0-66.0); PLATELET COUNT, AUTOMATED 164 10^3/uL (150-450); RED BLOOD COUNT 2.78 10^6/uL (4.00-5.40); WHITE BLOOD COUNT 7.1 10^3/uL (4.0-10.0)
[2023-01-20 06:22] LABS: ALBUMIN 2.6 G/DL (3.2-5.2); CALCIUM LEVEL 7.6 MG/DL (8.3-10.6); CREATININE FOR GFR 7.22 MG/DL (0.55-1.30); GLOMERULAR FILTRATION RATE 5.9 (>39); POTASSIUM SERUM 3.7 MMOL/L (3.5-5.1)
[2023-01-20 08:41] VITALS: BP 137/64
[2023-01-20] MEDS: INSULIN LISPRO (NovoLOG) PER UNIT SC SCH ×4 (09:43→20:48)
[2023-01-20] MEDS: VITAMIN D 1,000 INTERNATIONAL UNITS TABLET PO SCH (09:44)
[2023-01-20] MEDS: PANTOPRAZOLE 40MG TAB (PROTONIX) PO SCH (09:44)
[2023-01-20] MEDS: ASPIRIN 81MG CHEW TABLET PO SCH (09:44)
[2023-01-20] MEDS: CARVedilol 6.25 MG TAB PO SCH ×2 (09:44→20:51)
[2023-01-20] MEDS: CALCITRIOL 0.25 MCG CAP (S0169) PO SCH (09:44)
[2023-01-20] MEDS: ATORVASTATIN 10 MG TAB PO SCH (09:44)
[2023-01-20] MEDS: LACTOBACILLUS ACIDOPHILUS CAP (BACID) PO SCH ×4 (09:55→20:47)
[2023-01-20] MEDS: CALCIUM ACETATE 667MG GELCAP PO SCH ×2 (12:30→17:56)
[2023-01-20 15:50] VITALS: BP 127/56
[2023-01-20] MEDS: CIPROFLOXACIN 500MG TABLET PO SCH (17:57)
[2023-01-20 18:15] VITALS: BP 124/76
[2023-01-20] MEDS: LEVEMIR (INSULIN DETEMIR) 1 UNITS/0.01ML SC SCH (20:47)
[2023-01-21] MEDS: HEPARIN SOD (PORCINE) 5000UNITS/ML 1ML VIAL/SYRINGE SC SCH ×2 (05:44→14:00)
[2023-01-21] MEDS: LEVOTHYROXINE 88MCG TABLET (0.088 MG) PO SCH (05:44)
[2023-01-21] MEDS: metroNIDAZOLE (FLAGYL) 500MG TABLET PO SCH ×2 (05:44→14:08)
[2023-01-21 06:00] VITALS: BP 136/72
[2023-01-21 06:51] LABS: BASO % 0.3 % (0.0-1.0); EOS # 0.3 10^3/uL (0.0-0.5); EOS % 4.7 % (0.0-3.0); HEMATOCRIT 27.7 % (36.0-47.0); HEMOGLOBIN 9.3 g/dl (12.0-15.5); LYMPH # 1.2 10^3/uL (1.5-5.0); LYMPH % 16.4 % (24.0-44.0); MEAN CORPUSCULAR HEMOGLOBIN 32.2 pg (27.0-33.0); MEAN CORPUSCULAR HGB CONC 33.6 g/dl (32.0-36.5); MEAN CORPUSCULAR VOLUME 95.8 fl (80.0-96.0); MONO # 0.7 10^3/uL (0.0-0.8); MONO % 10.5 % (2.0-8.0); NEUTROPHILS # 4.8 10^3/uL (1.5-8.5); NEUTROPHILS % 67.7 % (36.0-66.0); PLATELET COUNT, AUTOMATED 181 10^3/uL (150-450); RED BLOOD COUNT 2.89 10^6/uL (4.00-5.40); WHITE BLOOD COUNT 7.1 10^3/uL (4.0-10.0)
[2023-01-21 07:13] LABS: ALBUMIN 2.8 G/DL (3.2-5.2); GLOMERULAR FILTRATION RATE 7.3 (>39); PHOSPHORUS LEVEL 5.8 MG/DL (2.4-5.1); POTASSIUM SERUM 3.8 MMOL/L (3.5-5.1)
[2023-01-21] MEDS: INSULIN LISPRO (NovoLOG) PER UNIT SC SCH ×2 (07:30→12:00)
[2023-01-21] MEDS: LACTOBACILLUS ACIDOPHILUS CAP (BACID) PO SCH ×2 (08:26→12:42)
[2023-01-21] MEDS: CALCIUM ACETATE 667MG GELCAP PO SCH ×2 (08:27→12:42)
[2023-01-21 08:28] VITALS: BP 111/94
[2023-01-21] MEDS: ASPIRIN 81MG CHEW TABLET PO SCH (08:28)
[2023-01-21] MEDS: VITAMIN D 1,000 INTERNATIONAL UNITS TABLET PO SCH (08:28)
[2023-01-21] MEDS: PANTOPRAZOLE 40MG TAB (PROTONIX) PO SCH (08:28)
[2023-01-21] MEDS: CARVedilol 6.25 MG TAB PO SCH (08:28)
[2023-01-21] MEDS: ATORVASTATIN 10 MG TAB PO SCH (08:28)
[2023-01-21] MEDS ORDERED: METR-265 PO (11:24)
[2023-01-21] MEDS ORDERED: CIPR-249 PO (11:24)
[2023-01-21] MEDS ORDERED: RISATAB3 PO (11:24)
== END 2023-01-21 14:45 | disposition home or self-care (01) | DRG 372 ==
LOC: M ED 19:35 → M ED INP 01-18 03:07 → ENRESERV 01-18 07:56 → M PCU 01-18 09:23 → M MS5PR 01-20 18:04
PROVIDERS: ADMIT Internal Medicine; ATTEND Internal Medicine
DX: A04.9 Bacterial intestinal infection, unspecified (principal); N17.9 Acute kidney failure, unspecified; E87.20 Acidosis, unspecified; N39.0 Urinary tract infection, site not specified; N18.4 Chronic kidney disease, stage 4 (severe); N25.81 Secondary hyperparathyroidism of renal origin; I72.8 Aneurysm of other specified arteries; E03.9 Hypothyroidism, unspecified; K57.30 Diverticulosis of large intestine without perforation or abscess without bleeding; E11.22 Type 2 diabetes mellitus with diabetic chronic kidney disease; I12.9 Hypertensive chronic kidney disease with stage 1 through stage 4 chronic kidney disease, or unspecified chronic kidney disease; E87.5 Hyperkalemia; D64.9 Anemia, unspecified; K42.9 Umbilical hernia without obstruction or gangrene; N20.0 Calculus of kidney; R53.83 Other fatigue; E78.5 Hyperlipidemia, unspecified; E56.9 Vitamin deficiency, unspecified; K21.9 Gastro-esophageal reflux disease without esophagitis; R53.1 Weakness; K20.90 Esophagitis, unspecified without bleeding; M10.9 Gout, unspecified; E86.9 Volume depletion, unspecified; Z79.82 Long term (current) use of aspirin; Z79.899 Other long term (current) drug therapy; Z96.653 Presence of artificial knee joint, bilateral; Z96.642 Presence of left artificial hip joint; K52.9 Noninfective gastroenteritis and colitis, unspecified; E83.39 Other disorders of phosphorus metabolism